=== PATIENT | female | born 1975 | race African-American/Black ===

== ENCOUNTER 2018-10-18 12:16 | Inpatient (IN) | payer OTHER ==
[2018-10-18 16:05] VITALS: BMI 20.2
--- NOTE | 2018-10-18 18:11 | HP ---
CIWA Score Nausea/Vomitin-No Nausea/No Vomiting Muscle Tremors: 2 Anxiety: 4-Mod. Anxious/Guarded Agitation: 4-Moderately Restless Paroxysmal Sweats: No Perspiration Orientation: 3-Disoriented Date>2 days Tacttile Disturbances: 2-Mild Itch/Numbness/Burn Auditory Disturbances: 0-None Visual Disturbances: 0-None Headache: 0-None Present CIWA-Ar Total Score: 15 - Admission Criteria OASAS Guidelines: Admission for Medically Managed Detox: Requires at least one of the followin. CIWA greater than 12 2. Seizures within the past 24 hours 3. Delirium tremens within the past 24 hours 4. Hallucinations within the past 24 hours 5. Acute intervention needed for co occurring medical disorder 6. Acute intervention needed for co occurring psychiatric disorder 7. Severe withdrawal that cannot be handled at a lower level of care (continued vomiting, continued diarrhea, abnormal vital signs) requiring intravenous medication and/or fluids 8. Admission ROS [facility] Allergies/Adverse Reactions: Allergies Allergy/AdvReac Type Severity Reaction Status Date / Time No Known Allergies Allergy Verified 10/18/18 15:52 History of Present Illness: pt here requesting detox from etoh use, reports 10 nips /day, reports seizures if not drinking , latest use 2 days ago , current symptoms as above, first age of use 15 , progressively increased since age 25 , currently drinking alcohol daily , drinks in the mornings, reports tremors , denies blackouts . cocaine - denies cannabis - denies reports went to hospital in [place] 2/2 seizure 1 mo ago , denies hospitalization since . pmhx : htn , hyperthyroidism on no meds " they haven't sent it in yet " , chronic back and leg pain , seizure d/o on meds x 5 mo . PSHx : KATIE around age 20 unknown cause , @ [facility] c[facility] . psych : denies tobacco : denies Others' Prescriptions Patient Name: Albertina Mayres Date: 1975 Address: [address] [place] [address] Sex: Female Rx Written Rx Dispensed Drug Quantity Days Supply Prescriber Name 07/19/2018 07/27/2018 oxycodone-acetaminophen 10-325 mg tab 60 30 Manohar Mireles M 06/28/2018 06/28/2018 oxycodone-acetaminophen 10-325 mg tab 60 15 Manohar Mireles,M 05/18/2018 05/18/2018 oxycodone-acetaminophen 10-325 mg tab 60 15 Manohar Mireles M Patient Name: Albertina Mayers Date: 1975 Address: [address] [place] [address] Sex: Female Rx Written Rx Dispensed Drug Quantity Days Supply Prescriber Name 04/19/2018 04/19/2018 oxycodone-acetaminophen 10-325 mg tab 60 14 Manohar Mireles,M 03/12/2018 03/12/2018 oxycodone-acetaminophen 10-325 mg tab 60 15 Manohar Mireles,M 02/09/2018 02/10/2018 oxycodone-acetaminophen 10-325 mg tab 60 15 Manohar Mireles,M 01/11/2018 01/11/2018 oxycodone-acetaminophen 10-325 mg tab 60 15 Manohar Mireles,M 12/11/2017 12/21/2017 oxycodone-acetaminophen 10-325 mg tab 60 15 Manohar Mireles,M 11/15/2017 12/06/2017 oxycodone-acetaminophen 10-325 mg tab 60 15 Manohar Mireles,M 11/07/2017 11/10/2017 oxycodone-acetaminophen 10-325 mg tab 60 15 Manohar Mireles,M * - Drugs marked with an asterisk are compound drugs. If the compound drug is made up of more than one controlled substance, then each controlled substance will be a separate row in the table. Exam Limitations: No Limitations - Ebola screening Have you traveled outside of the country in the last 21 days: No Have you had contact with anyone from an Ebola affected area: No Do you have a fever: No - Review of Systems Constitutional: See HPI EENT: reports: See HPI Respiratory: reports: No Symptoms reported Cardiac: reports: No Symptoms Reported GI: reports: No Symptoms Reported : reports: No Symptoms Reported Musculoskeletal: reports: See HPI Integumentary: reports: No Symptoms Reported Neuro: reports: No Symptoms reported Endocrine: reports: No Symptoms Reported Psychiatric: reports: Orientated x3, Anxious Patient History - Patient Medical History Hx Anemia: No Hx Asthma: No Hx Chronic Obstructive Pulmonary Disease (COPD): No Hx Cancer: No Hx Cardiac Disorders: No Hx Congestive Heart Failure: No Hx Hypertension: Yes (started medication today) Hx Hypercholesterolemia: No Hx Pacemaker: No HX Cerebrovascular Accident: No Hx Seizures: No Hx Dementia: No Hx Diabetes: No Hx Gastrointestinal Disorders: No Hx Liver Disease: No Hx Genitourinary Disorders: No Hx Sexually Transmitted Disorders: No Hx Renal Disease (ESRD): No Hx Thyroid Disease: No Hx Human Immunodeficiency Virus (HIV): No (tested last year) Hx Hepatitis C: No Hx Depression: Yes Hx Suicide Attempt: No Hx Bipolar Disorder: No Hx Schizophrenia: No - Patient Surgical History Past Surgical History: Yes Hx Neurologic Surgery: No Hx Cataract Extraction: No Hx Cardiac Surgery: No Hx Lung Surgery: No Hx Breast Surgery: No Hx Breast Biopsy: No Hx Abdominal Surgery: Yes (total hysterectomy after a "cyst" was found in the ovary, not on Anti/metab) Hx Appendectomy: Yes (1993) Hx Cholecystectomy: No Hx Genitourinary Surgery: No Hx Section: No Hx Orthopedic Surgery: No Anesthesia Reaction: No - PPD History Date: 07/10/14 Results: 0 mm - Reproductive History Last Menstrual Period: 04/16/12 - Smoking Cessation Smoking history: Never smoked Have you smoked in the past 12 months: No Aproximately how many cigarettes per day: 1 If you are a former smoker, when did you quit?: 20 years ago Hx Chewing Tobacco Use: No - Substances abused Alcohol Substance route: Oral Frequency: Daily Amount used: 2 pints Age of first use: 15 Date of last use: 10/16/18 Family Disease History - Family Disease History Family Disease History: Other: Father (alcoholic) Admission Physical Exam S - Vital Signs Vital Signs: Vital Signs - 24 hr 10/18/18 15:41 Temperature 96.7 F L Pulse Rate 104 H Respiratory 18 Rate Blood Pressure 114/92 - Physical General Appearance: Yes: Appropriately Dressed, Mild Distress, Anxious HEENTM: Yes: EOMI, Normocephalic, Normal Voice Respiratory: Yes: Chest Non-Tender, Lungs Clear, Normal Breath Sounds Neck: Yes: No masses,lesions,Nodules, Trachea in good position Cardiology: Yes: Regular Rhythm, Regular Rate, S1, S2, Tachycardia Abdominal: Yes: Non Tender, Soft Back: Yes: Normal Inspection Musculoskeletal: Yes: Back pain, Joint Stiffness (jeovany knees), Muscle Pain (l- spine) Extremities: Yes: Non-Tender Neurological: Yes: Alert, Motor Strength 5/5, Disoriented, Depressed Affect Integumentary: Yes: Warm - Diagnostic (1) Alcohol dependence Current Visit: Yes Status: Acute Qualifiers: Substance use status: in withdrawal Breathalyzer - Breathalyzer Breathalyzer: 0 Urine Drug Screen - Test Device Lot number: [id number] Expiration date: 06/28/20 - Control Is test valid?: Yes - Results Drug screen NEGATIVE: No Urine drug screen results: THC-Marijuana, OXY-Oxycodone, BZO-Benzodiazepines Inpatient Rehab Admission - Rehab Decision to Admit Inpatient rehab admission?: No
[2018-10-18] MEDS ORDERED: MAGNESIUM CITRATE 300 ML BOTTLE PO PRN (18:30)
[2018-10-18] MEDS ORDERED: MAGNESIUM HYDROX 2400MG/30ML ORAL SUSPENSION 30 ML CUP PO PRN (18:30)
[2018-10-18] MEDS ORDERED: ACETAMINOPHEN 325 MG TABLET (FP) PO PRN ×2 (18:30)
[2018-10-18] MEDS ORDERED: MENTHOL/PHENOL 1 EACH UD MM PRN (18:30)
[2018-10-18] MEDS ORDERED: hydrOXYzine PAMOATE 25 MG CAPSULE (FP) PO PRN (18:30)
[2018-10-18] MEDS ORDERED: METHOCARBAMOL 500 MG TABLET PO PRN (18:30)
[2018-10-18] MEDS ORDERED: MAG HYDROX/AL HYDROX/SIMETH 30 ML UNIT-DOSE CUP PO PRN (18:30)
[2018-10-18] MEDS ORDERED: BISMUTH SUBSALICYLATE 524 MG/30 ML UD PO PRN (18:30)
[2018-10-18] MEDS ORDERED: chlordiazePOXIDE HCL 25 MG CAPSULE PO PRN (18:33)
[2018-10-18] MEDS: levETIRAcetam 500 MG TABLET (FP) PO SCH (22:33)
[2018-10-18] MEDS: chlordiazePOXIDE HCL 25 MG CAPSULE PO SCH (22:33)
[2018-10-18] MEDS: THIAMINE HCL 100 MG TABLET (FP) PO SCH (22:33)
[2018-10-18] MEDS: IBUPROFEN 400 MG TABLET (FP) PO PRN (23:16)
[2018-10-19] MEDS: chlordiazePOXIDE HCL 25 MG CAPSULE PO SCH ×4 (05:35→22:27)
[2018-10-19] MEDS: levETIRAcetam 500 MG TABLET (FP) PO SCH ×2 (11:13→22:27)
[2018-10-19] MEDS: PRENATAL VITAMINS W/ FOLIC ACID TABLET (FP) PO SCH (11:13)
[2018-10-19 11:50] LABS: HEMATOCRIT 35.8 % (32.4-45.2); HEMOGLOBIN 11.8 GM/dL (10.7-15.3); MCH 33.2 pg (25.7-33.7); MEAN CELL VOLUME 100.8 fl (80-96); MEAN PLT VOLUME 9.5 fl (7.5-11.1); PLATELET COUNT 248 K/MM3 (134-434); RBC 3.55 M/mm3 (3.60-5.2); WHITE BLOOD COUNT 4.9 K/mm3 (4.0-10.0)
[2018-10-19 12:05] LABS: ALBUMIN 2.9 g/dl (3.4-5.0); BILIRUBIN,TOTAL 0.9 mg/dL (0.2-1); BLOOD UREA NITROGEN 12.9 mg/dL (7-18); CALCIUM 9.3 mg/dL (8.5-10.1); CREATININE 0.7 mg/dL (0.55-1.3); POTASSIUM 3.4 mmol/L (3.5-5.1); TOT PROT 6.3 g/dl (6.4-8.2)
--- NOTE | 2018-10-19 12:56 | PN ---
[facility] CIWA - CIWA Score Nausea/Vomitin-No Nausea/No Vomiting Muscle Tremors: 3 Anxiety: 2 Agitation: 3 Paroxysmal Sweats: 3 Orientation: 0-Oriented Tacttile Disturbances: 0-None Auditory Disturbances: 0-None Visual Disturbances: 0-None Headache: 0-None Present CIWA-Ar Total Score: 11 S Progress Note (SOAP) Subjective: sleepy sweats body aches interrupted sleep Objective: 10/19/18 12:55 Vital Signs Temperature 98.0 F 10/19/18 10:00 Pulse Rate 122 H 10/19/18 10:00 Respiratory Rate 18 10/19/18 10:00 Blood Pressure 118/86 10/19/18 10:00 O2 Sat by Pulse Oximetry (%) Laboratory Tests 10/19/18 10/19/18 07:00 07:00 WBC 4.9 RBC 3.55 L Hgb 11.8 Hct 35.8 MCV 100.8 H MCH 33.2 MCHC 33.0 RDW 17.0 H Plt Count 248 D MPV 9.5 Sodium 136 Potassium 3.4 L Chloride 99 Carbon Dioxide 30 Anion Gap 8 BUN 12.9 Creatinine 0.7 Est GFR (CKD-EPI)AfAm 122.99 Est GFR (CKD-EPI)NonAf 106.12 Random Glucose 102 Calcium 9.3 Total Bilirubin 0.9 AST 156 H ALT 54 Alkaline Phosphatase 160 H Total Protein 6.3 L Albumin 2.9 L labs noted mild hypokalemai 3.4; 40meq x one ordered aaox3 lying in bed no acute distress Assessment: 10/19/18 12:56 withdrawal sx Plan: continue detox increase fluids
[2018-10-19] MEDS ORDERED: POTASSIUM CHLORIDE TABS 20 MEQ TABLET.ER (FP) PO ONE (14:45)
[2018-10-19] MEDS: IBUPROFEN 400 MG TABLET (FP) PO PRN (20:56)
[2018-10-19] MEDS: THIAMINE HCL 100 MG TABLET (FP) PO SCH (22:27)
[2018-10-19] MEDS: MELATONIN 5 MG TABLETS PO PRN (22:27)
[2018-10-20] MEDS: chlordiazePOXIDE HCL 25 MG CAPSULE PO SCH ×3 (05:47→18:15)
[2018-10-20] MEDS: IBUPROFEN 400 MG TABLET (FP) PO PRN ×2 (10:21→18:15)
[2018-10-20] MEDS: PRENATAL VITAMINS W/ FOLIC ACID TABLET (FP) PO SCH (10:22)
[2018-10-20] MEDS: levETIRAcetam 500 MG TABLET (FP) PO SCH ×2 (10:22→22:14)
--- NOTE | 2018-10-20 14:38 | PN ---
S CIWA - CIWA Score Nausea/Vomitin Muscle Tremors: None Anxiety: 3 Agitation: 2 Paroxysmal Sweats: 2 Orientation: 0-Oriented Tacttile Disturbances: 0-None Auditory Disturbances: 0-None Visual Disturbances: 0-None Headache: 2-Mild CIWA-Ar Total Score: 11 BHS Progress Note (SOAP) Subjective: PATIENT C/O ANXIETY, RESTLESSNESS, NAUSEA AND NIGHT SWEATS Objective: 10/20/18 14:37 Vital Signs Temperature 98.1 F 10/20/18 09:29 Pulse Rate 118 H 10/20/18 09:29 Respiratory Rate 18 10/20/18 09:29 Blood Pressure 139/90 10/20/18 09:29 O2 Sat by Pulse Oximetry (%) Laboratory Tests 10/18/18 10/19/18 10/19/18 17:53 07:00 07:00 WBC 4.9 RBC 3.55 L Hgb 11.8 Hct 35.8 MCV 100.8 H MCH 33.2 MCHC 33.0 RDW 17.0 H Plt Count 248 D MPV 9.5 Sodium 136 Potassium 3.4 L Chloride 99 Carbon Dioxide 30 Anion Gap 8 BUN 12.9 Creatinine 0.7 Est GFR (CKD-EPI)AfAm 122.99 Est GFR (CKD-EPI)NonAf 106.12 Random Glucose 102 Calcium 9.3 Total Bilirubin 0.9 AST 156 H ALT 54 Alkaline Phosphatase 160 H Total Protein 6.3 L Albumin 2.9 L POC Urine HCG, Qual Negative RPR Titer HIV 1&2 Antibody Screen HIV P24 Antigen 10/19/18 10/19/18 07:00 07:00 WBC RBC Hgb Hct MCV MCH MCHC RDW Plt Count MPV Sodium Potassium Chloride Carbon Dioxide Anion Gap BUN Creatinine Est GFR (CKD-EPI)AfAm Est GFR (CKD-EPI)NonAf Random Glucose Calcium Total Bilirubin AST ALT Alkaline Phosphatase Total Protein Albumin POC Urine HCG, Qual RPR Titer Nonreactive HIV 1&2 Antibody Screen Negative HIV P24 Antigen Negative PE: ALERT AND ORIENTED X 3 SKIN WARM, MOISTURE TO FACE +PERRLA, EOM INTACT BL EXT FULL ROM, AMB AD LYNDSAY Assessment: 10/20/18 14:38 WITHDRAWAL SX Plan: CONTINUE DETOX REPEAT CMP IN AM
[2018-10-20] MEDS: chlordiazePOXIDE HCL 10 MG CAPSULE PO SCH (22:14)
[2018-10-20] MEDS: THIAMINE HCL 100 MG TABLET (FP) PO SCH (22:15)
[2018-10-20] MEDS ORDERED: chlordiazePOXIDE HCL 10 MG CAPSULE PO PRN (23:00)
[2018-10-21] MEDS: chlordiazePOXIDE HCL 10 MG CAPSULE PO SCH ×3 (06:25→17:28)
[2018-10-21] MEDS: PRENATAL VITAMINS W/ FOLIC ACID TABLET (FP) PO SCH (09:31)
[2018-10-21] MEDS: levETIRAcetam 500 MG TABLET (FP) PO SCH ×2 (09:31→22:29)
[2018-10-21 11:01] LABS: ALBUMIN 2.7 g/dl (3.4-5.0); BILIRUBIN,TOTAL 0.8 mg/dL (0.2-1); BLOOD UREA NITROGEN 13.7 mg/dL (7-18); CALCIUM 9.8 mg/dL (8.5-10.1); CREATININE 1.1 mg/dL (0.55-1.3); POTASSIUM 4.6 mmol/L (3.5-5.1)
[2018-10-21] MEDS: IBUPROFEN 400 MG TABLET (FP) PO PRN (12:04)
--- NOTE | 2018-10-21 17:05 | PN ---
S CIWA - CIWA Score Nausea/Vomitin-No Nausea/No Vomiting Muscle Tremors: 2 Anxiety: 2 Agitation: 2 Paroxysmal Sweats: 3 Orientation: 0-Oriented Tacttile Disturbances: 0-None Auditory Disturbances: 0-None Visual Disturbances: 0-None Headache: 0-None Present CIWA-Ar Total Score: 9 BHS Progress Note (SOAP) Subjective: Interrupted sleep Objective: 10/21/18 17:03 Last Vital Signs Temp Pulse Resp BP Pulse Ox 97.5 F L 103 H 18 115/86 10/21/18 14:25 10/21/18 14:25 10/21/18 14:25 10/21/18 14:25 Laboratory Tests 10/18/18 10/19/18 10/19/18 17:53 07:00 07:00 WBC 4.9 RBC 3.55 L Hgb 11.8 Hct 35.8 MCV 100.8 H MCH 33.2 MCHC 33.0 RDW 17.0 H Plt Count 248 D MPV 9.5 Sodium 136 Potassium 3.4 L Chloride 99 Carbon Dioxide 30 Anion Gap 8 BUN 12.9 Creatinine 0.7 Est GFR (CKD-EPI)AfAm 122.99 Est GFR (CKD-EPI)NonAf 106.12 Random Glucose 102 Calcium 9.3 Total Bilirubin 0.9 AST 156 H ALT 54 Alkaline Phosphatase 160 H Total Protein 6.3 L Albumin 2.9 L POC Urine HCG, Qual Negative RPR Titer HIV 1&2 Antibody Screen HIV P24 Antigen 10/19/18 10/19/18 10/21/18 07:00 07:00 08:00 WBC RBC Hgb Hct MCV MCH MCHC RDW Plt Count MPV Sodium 142 Potassium 4.6 Chloride 105 Carbon Dioxide 28 Anion Gap 9 BUN 13.7 Creatinine 1.1 Est GFR (CKD-EPI)AfAm 71.21 Est GFR (CKD-EPI)NonAf 61.44 Random Glucose 125 H Calcium 9.8 Total Bilirubin 0.8 AST 99 H ALT 48 Alkaline Phosphatase 138 H Total Protein 6.0 L Albumin 2.7 L POC Urine HCG, Qual RPR Titer Nonreactive HIV 1&2 Antibody Screen Negative HIV P24 Antigen Negative Labs reviewed Assessment: 10/21/18 17:04 Withdrawal symptoms Plan: Continue detox Encouraged PO water hydration
[2018-10-21] MEDS: THIAMINE HCL 100 MG TABLET (FP) PO SCH (22:29)
[2018-10-21] MEDS: MELATONIN 5 MG TABLETS PO PRN (22:29)
[2018-10-21] MEDS ORDERED: chlordiazePOXIDE HCL 10 MG CAPSULE PO SCH (23:00)
[2018-10-22 09:25] VITALS: BP 126/99; PULSE 106; TEMP 97.2
[2018-10-22] MEDS: PRENATAL VITAMINS W/ FOLIC ACID TABLET (FP) PO SCH (09:30)
[2018-10-22] MEDS: levETIRAcetam 500 MG TABLET (FP) PO SCH (09:30)
--- NOTE | 2018-10-22 10:47 | DS ---
[facility] Detox Discharge Summary Admission Date: 10/18/18 Discharge Date: 10/22/18 - History Present History: Alcohol Dependence - Physical Exam Results Vital Signs: Vital Signs Temperature 97.2 F L 10/22/18 09:24 Pulse Rate 106 H 10/22/18 09:24 Respiratory Rate 16 10/22/18 09:24 Blood Pressure 126/99 10/22/18 09:24 O2 Sat by Pulse Oximetry (%) - Treatment Hospital Course: Detox Protocol Followed, Detoxed Safely, Responded well, Discharged Condition Good, Rehab Referral Accepted - Medication Discharge Medications: Ambulatory Orders Metoprolol Succinate [Toprol Xl] 50 mg PO DAILY 10/18/18 Thiamine HCl [Vitamin B-1] 250 mg PO DAILY 10/18/18 levETIRAcetam [Keppra -] 500 mg PO BID 10/18/18 - Diagnosis (1) Alcohol dependence Status: Chronic Qualifiers: Substance use status: uncomplicated Qualified Code(s): F10.20 - Alcohol dependence, uncomplicated (2) Alcohol-induced sleep disorder Status: Acute (3) Elevated transaminase level Status: Acute (4) Essential (primary) hypertension Status: Chronic - AMA Did Patient Leave Against Medical Advice: No (referred to [facility] outpatient rehab)
== END 2018-10-22 10:14 | disposition home or self-care (01) | DRG 775 ==
LOC: YASAS 12:16 → Y6N 20:15
PROVIDERS: ADMIT Surgery; ATTEND Surgery
PROC: HZ2ZZZZ Detoxification Services for Substance Abuse Treatment (ICD-10-PCS; principal; 2018-10-18)
DX: F10.230 Alcohol dependence with withdrawal, uncomplicated (principal); F10.282 Alcohol dependence with alcohol-induced sleep disorder; F32.9 Major depressive disorder, single episode, unspecified; I10 Essential (primary) hypertension; E87.6 Hypokalemia; R74.0 Nonspecific elevation of levels of transaminase and lactic acid dehydrogenase [LDH]
CPT/HCPCS: 36415; 80053; 81025; 85027; 86593; 87389